=== PATIENT | female | born 1995 | race Caucasian/White ===

== ENCOUNTER 2018-06-26 10:05 | Emergency (ER) | payer MEDICAID, SELFPAY ==
[2018-06-26 10:06] VITALS: BP 165/75; PULSE 93; RESP 15; TEMP 36.6; O2SAT 100; BMI 39.2
[2018-06-26 10:35] VITALS: BP 141/78; PULSE 91; RESP 16; O2SAT 100
[2018-06-26 10:57] LABS: Absolute Lymphocyte Count 2.81 X10^3/ul (0.83-4.51); Absolute Neutrophil Count 9.4 X10^3/uL (2.0-7.7); Basophil# 0.02 X10^3/uL; Basophil% 0.2 % (0-1); Hematocrit 43.9 % (37-47); Hemoglobin 14.4 g/dl (12.0-15.0); Lymphocyte # 2.81 X10^3/ul (4.0); Lymphocyte % 21.9 % (19-41); Mean Corp Hgb Conc 32.8 g/gl (32-36); Mean Corpuscular Hgb 30.3 pg (27.0-32.0); Mean Corpuscular Volume 92.4 fL (81-99); Mean Platelet Vol. 10.6 fl (6.2-12.0); Monocyte# 0.57 X10^3/uL; Monocyte% 4.4 % (0-10); Neutrophil # 9.41 X10^3/uL (2.7-7.7); Neutrophil % 73.3 % (47-70); Platelet Count 243 K/mm3 (150-450); RBC Distribution Width CV 12.6 % (11.6-14.6); RBC Distribution Width SD 42.5 fl (35.1-43.9); Red Blood Count 4.75 M/mm3 (4.2-5.4); White Blood Count 12.8 K/mm3 (4.4-11.0)
[2018-06-26 10:58] LABS: POSITIVE COUNT NO; POSITIVE DIFFERENTIAL NO; POSITIVE MORPHOLOGY NO
[2018-06-26 11:08] LABS: Anion Gap 7 (5-15); BUN 13 mg/dL (7-18); BUN/Creat Ratio 14.9 RATIO (10-20); Calcium,Total 8.9 mg/dL (8.5-10.1); Chloride 105 mmol/L (98-107); Creatinine, Serum 0.88 mg/dL (0.55-1.02); EST Glomerular Filtration Rate 84 mL/min (>60); Est Glom Filt Rate - Afr Amer 101 mL/min (>60); Estimated Creatinine Clearance 99.44 ml/min; Glucose 122 mg/dL (74-106); Potassium 3.9 mmol/L (3.5-5.1); Sodium Level 139 mmol/L (136-145)
--- NOTE | 2018-06-26 11:10 | ED.VISSUMM ---
- ER Visit Summary Date of Service: 06/26/18 Chief Complaint: [Depression and anxiety] History of Present Illness: The patient is a 22 F [presents the emergency department with complaint of feeling like she is having a nervous breakdown. Patient states that she has been quite depressed for several months. Patient states that her son about 4 years ago and she does not believe that she is fully dealt with that. Patient states that she also developed a relationship with a boyfriend at that time and that relationship is currently pending however she still living with the boyfriend. Patient while at work today states that she could not stop crying. She is not actively having thoughts of wanting to harm herself although she states that if she got hit by a car she would not feel bad about it. Patient denies any auditory or visual hallucinations. She denies any homicidal thoughts. Patient states that she is having a hard time sleeping at night. Patient has lost 16 pounds in the last month. Patient states that she is crying more than usual.] Patient states that she used to be on Prozac and Ativan however she took those for about 6 months and then felt like she could handle things on her own and discontinue her medications and has been without them for several months. Physical Examination: [HEENT-PERRLA, EOMI. Cranial nerves II through XII grossly intact. TMs clear. Mucous membranes moist. No adenopathy. Patient tearful on exam. Cardiovascular-regular rate and rhythm without murmur or ectopy Lungs-clear to auscultation, chest wall stable without crepitus or subcu emphysema Abdomen-normoactive bowel sounds, soft, nontender, no rebound or rigidity, no peritoneal signs. Extremities-intact ?4, normal range of motion, normal pulses, atraumatic] Test Results: [CBC with differential slightly elevated white blood cell count of 12.8, hemoglobin 14, hematocrit 44, platelets 293.. Chemistries were normal.] Toxicology screen was positive for marijuana. Alcohol was negative. Emergency Department Course and Treatment: [Patient was evaluated by crisis in the department and it is not felt that she is a candidate for inpatient treatment. Patient is comfortable with going home and following up as an outpatient with counseling and getting set up with psychiatrist as an outpatient.] Treatment Plan: [Patient will be given a prescription for as needed Ativan. Patient also will be advised to follow-up with her primary care physician as she does not want to go back on Prozac but would like potentially try something different.] Disposition: [Discharged home in stable condition] Impression: [Depression Anxiety] This note was generated with [employer] dictation software. It may contain incorrect words, spelling, and punctuation that were not noted in review of the chart prior to signing ED Disposition - Plan for ED Patient: Chief Complaint: Depression Referrals: Alex Lovell DO [Primary Care Provider] -
[2018-06-26 11:25] LABS: Amphetamine Urine VISTA NEGATIVE (<1000 ng/mL); Barbiturate Urine VISTA NEGATIVE (< 200 ng/mL); Benzodiazepine Urine VISTA NEGATIVE (< 200 ng/mL); Cocaine Urine VISTA NEGATIVE (< 300 ng/mL); Ecstacy Urine VISTA NEGATIVE (< 500 ng/mL); Methadone Urine VISTA NEGATIVE (< 300 ng/mL); PCP Urine VISTA NEGATIVE (< 25 ng/mL); THC Urine VISTA POSITIVE (< 50 ng/mL); Vista UDS pH Range 6
[2018-06-26 11:25] LABS: Pregnancy, Serum, hCG Quali. NEGATIVE Negative (0-9 Nonpreg)
--- NOTE | 2018-06-26 12:08 | NURSING ---
CRISTIANA, CRISIS, AWARE OF PATIENT
[2018-06-26 12:59] VITALS: BP 130/71; PULSE 67; RESP 14; O2SAT 99
--- NOTE | 2018-06-26 13:49 | ED.RN ---
SUICIDE PRECAUTIONS NOT TAKEN DUE TO PATIENT NOT SUICIDAL. DR HAM.
[2018-06-26 15:25] VITALS: BP 129/77; PULSE 76; RESP 14; O2SAT 100
--- NOTE | 2018-06-26 15:52 | ED.DEP ---
ED Disposition - Plan for ED Patient: Chief Complaint: Depression Instructions: ED Depression, ED Stress React Prescriptions: Lorazepam [Ativan] 1 mg PO TID PRN #15 tab PRN Reason: Anxiety Referrals: Alex Lovell DO [Primary Care Provider] - 3-5 Days
[2018-06-26 15:59] VITALS: RESP 14
== END 2018-06-26 16:01 | disposition home or self-care (01) ==
PROVIDERS: Emergency Provider Emergency Medicine; Family Provider Family Medicine; PCP Family Medicine
DX: F32.9 Major depressive disorder, single episode, unspecified (principal); F41.9 Anxiety disorder, unspecified; Z72.0 Tobacco use
CPT/HCPCS: 36415; 80048; 80307; 80320; 84703; 85025; 99282; G0480